=== PATIENT | female | born 1975 | race Asian ===

== ENCOUNTER 2018-10-10 01:22 | Emergency (ER) | payer MEDICAID ==
[~2018-10-10] VITALS: Ht 162.6 cm; Wt 49.9 kg
[2018-10-10 01:32] VITALS: Ht 162.6 cm; Wt 49.9 kg
[2018-10-10 03:48] VITALS: BP 110/82
== END 2018-10-10 03:48 | disposition home or self-care (01) ==
LOC: ED 01:22
DX: S00.83XA Contusion of other part of head, initial encounter (principal); Y04.0XXA Assault by unarmed brawl or fight, initial encounter; Y93.89 Activity, other specified; Y92.89 Other specified places as the place of occurrence of the external cause; Y99.8 Other external cause status
CPT/HCPCS: Q0162